=== PATIENT | male | born 1960 | race Caucasian/White ===

== ENCOUNTER 2023-10-16 14:56 | Emergency (ER) | payer MEDICARE ==
[~2023-10-16] VITALS: Ht 172.7 cm; Wt 82.1 kg
[2023-10-16] MEDS ORDERED: ASPIRIN 81MG CHEW TABLET PO ONE (15:15)
[2023-10-16] MEDS: METOPROLOL 5 MG/5 ML VIAL IV PRN ×3 (15:18→15:35)
[2023-10-16] MEDS ORDERED: METOPROLOL TART 25 MG TABLET PO ONE (15:30)
[2023-10-16] MEDS ORDERED: ISOVUE-370 76% 100ML VIAL As Ordered ONE (15:41)
[2023-10-16 15:52] LABS: BASO # 0.1 10^3/uL (0.0-0.2); BASO % 0.7 % (0.0-1.0); EOS # 0.2 10^3/uL (0.0-0.5); EOS % 1.6 % (0.0-3.0); HEMATOCRIT 44.1 % (42.0-52.0); HEMOGLOBIN 14.7 g/dl (13.5-17.5); LYMPH # 3.9 10^3/uL (1.5-5.0); LYMPH % 33.3 % (24.0-44.0); MEAN CORPUSCULAR HEMOGLOBIN 30.4 pg (27.0-33.0); MEAN CORPUSCULAR HGB CONC 33.3 g/dl (32.0-36.5); MEAN CORPUSCULAR VOLUME 91.1 fl (80.0-96.0); MONO # 0.8 10^3/uL (0.0-0.8); MONO % 7.1 % (2.0-8.0); NEUTROPHILS # 6.7 10^3/uL (1.5-8.5); PLATELET COUNT, AUTOMATED 288 10^3/uL (150-450); RED BLOOD COUNT 4.84 10^6/uL (4.30-6.10); WHITE BLOOD COUNT 11.7 10^3/uL (4.0-10.0)
[2023-10-16 16:10] LABS: LIPASE 125 U/L (12-53)
[2023-10-16 16:12] LABS: ALBUMIN 4.2 G/DL (3.2-5.2); ALKALINE PHOSPHATASE 92 U/L (46-116); ALT/SGPT 39 U/L (7.0-40); AST/SGOT 31 U/L (<34); BILIRUBIN,DIRECT 0.2 MG/DL (<0.4); BILIRUBIN,TOTAL 0.7 MG/DL (0.3-1.2); BLOOD UREA NITROGEN 15 MG/DL (9-23); CALCIUM LEVEL 9.6 MG/DL (8.3-10.6); CARBON DIOXIDE LEVEL 28 MMOL/L (20-31); CHLORIDE LEVEL 102 MMOL/L (98-107); CK-MB VALUE MASS 1.3 NG/ML (<3.6); CPK CREATINE PHOSPHOKINASE 80 U/L (46-171); CREATININE FOR GFR 0.77 MG/DL (0.70-1.30); GLOMERULAR FILTRATION RATE > 60.0 (>49); GLUCOSE, FASTING 146 MG/DL (74-106); MB/CK RELATIVE INDEX 1.62 (< OR =4); POTASSIUM SERUM 3.8 MMOL/L (3.5-5.1); SODIUM LEVEL 138 MMOL/L (136-145); TOTAL PROTEIN 7.3 G/DL (5.7-8.2)
[2023-10-16 16:14] LABS: FREE T4 1.32 NG/DL (0.89-1.76); THYROID STIMULATING HORMONE 2.023 uIU/ML (0.55-4.78)
[2023-10-16 16:17] VITALS: BP 132/77
[2023-10-16 16:45] LABS: INR 1.55
[2023-10-16 16:46] LABS: PARTIAL THROMBOPLASTIN TIME 40.3 SECONDS (24.8-34.2)
[2023-10-16 17:26] LABS: CK-MB VALUE MASS 1.5 NG/ML (<3.6)
[2023-10-16] MEDS ORDERED: GABA-282 PO (17:52)
[2023-10-16] MEDS ORDERED: ZOLO100T PO (17:52)
[2023-10-16] MEDS ORDERED: BUSP10TA PO (17:52)
[2023-10-16 19:10] VITALS: BP 138/77; TEMP 98.1
[2023-10-16 19:15] VITALS: O2SAT 96
[2023-10-16 19:15] LABS: CK-MB VALUE MASS 1.6 NG/ML (<3.6)
[2023-10-16 19:16] LABS: MB/CK RELATIVE INDEX 1.95 (< OR =4)
== END 2023-10-16 20:10 | disposition home or self-care (01) ==
LOC: M ED 14:56
DX: I48.0 Paroxysmal atrial fibrillation (principal); R00.1 Bradycardia, unspecified; I44.4 Left anterior fascicular block; E78.5 Hyperlipidemia, unspecified; F12.10 Cannabis abuse, uncomplicated; Z86.79 Personal history of other diseases of the circulatory system; Z79.01 Long term (current) use of anticoagulants; Z79.891 Long term (current) use of opiate analgesic; Z79.899 Other long term (current) drug therapy
CPT/HCPCS: 71045; 71275; 80047; 80048; 80076; 82550; 82553; 83690; 83880; 84439; 84443; 84484; 85025; 85610; 85730; 93005; 93041; 94760; 96374; 99285; Q9967

== ENCOUNTER 2024-02-15 21:23 | Emergency (ER) | payer MEDICAID, MEDICARE ==
[~2024-02-15] VITALS: Ht 170.2 cm; Wt 80.0 kg
[2024-02-15] MEDS: METOPROLOL 5 MG/5 ML VIAL IV SCH (02:40)
[~2024-02-15 21:23] MED LIST: BUSP10TA PO; GABA-282 PO; ZOLO100T PO
[2024-02-15 22:04] LABS: BASO % 0.2 % (0.0-1.0); HEMOGLOBIN 9.9 g/dl (13.5-17.5); LYMPH # 1.7 10^3/uL (1.5-5.0); LYMPH % 28.3 % (24.0-44.0); MEAN CORPUSCULAR VOLUME 78.7 fl (80.0-96.0); MONO # 0.3 10^3/uL (0.0-0.8); MONO % 4.6 % (2.0-8.0); NEUTROPHILS % 66.6 % (36.0-66.0); PLATELET COUNT, AUTOMATED 200 10^3/uL (150-450); RED BLOOD COUNT 3.81 10^6/uL (4.30-6.10)
[2024-02-15 22:15] LABS: INR 2.14; PROTHROMBIN TIME 23.2 SECONDS (12.5-14.5)
[2024-02-15 22:32] LABS: CK-MB VALUE MASS < 1.0 NG/ML (<3.6)
[2024-02-15 22:34] LABS: BLOOD UREA NITROGEN 25 MG/DL (9-23); CALCIUM LEVEL 7.8 MG/DL (8.3-10.6); CARBON DIOXIDE LEVEL 26 MMOL/L (20-31); CHLORIDE LEVEL 100 MMOL/L (98-107); CPK CREATINE PHOSPHOKINASE 30 U/L (46-171); CREATININE FOR GFR 1.19 MG/DL (0.70-1.30); GLOMERULAR FILTRATION RATE > 60.0 (>49); GLUCOSE, FASTING 113 MG/DL (74-106); MAGNESIUM LEVEL 1.8 MG/DL (1.8-2.4); MB/CK RELATIVE INDEX 3.33 (< OR =4); SODIUM LEVEL 131 MMOL/L (136-145)
[2024-02-15] MEDS: METOPROLOL TART 25 MG TABLET PO ONE (22:35)
[2024-02-15 22:36] LABS: THYROID STIMULATING HORMONE 1.079 uIU/ML (0.55-4.78)
[2024-02-15 22:59] LABS: FREE T4 1.06 NG/DL (0.89-1.76)
[2024-02-16] MEDS: PANTOPRAZOLE 40MG VIAL IV ONE ×2 (00:10→07:44)
[2024-02-16] MEDS ORDERED: ISOVUE-370 76% 100ML VIAL As Ordered ONE (00:23)
[2024-02-16 00:26] LABS: CK-MB VALUE MASS 1.8 NG/ML (<3.6); MB/CK RELATIVE INDEX 6.92 (< OR =4)
[2024-02-16 05:00] LABS: BASO % 0.2 % (0.0-1.0); HEMATOCRIT 27.7 % (42.0-52.0); HEMOGLOBIN 9.1 g/dl (13.5-17.5); LYMPH % 30.2 % (24.0-44.0); MEAN CORPUSCULAR HEMOGLOBIN 25.5 pg (27.0-33.0); MEAN CORPUSCULAR HGB CONC 32.9 g/dl (32.0-36.5); MEAN CORPUSCULAR VOLUME 77.6 fl (80.0-96.0); MONO # 0.4 10^3/uL (0.0-0.8); MONO % 5.5 % (2.0-8.0); NEUTROPHILS # 4.2 10^3/uL (1.5-8.5); NEUTROPHILS % 63.8 % (36.0-66.0); PLATELET COUNT, AUTOMATED 189 10^3/uL (150-450); RED BLOOD COUNT 3.57 10^6/uL (4.30-6.10); WHITE BLOOD COUNT 6.5 10^3/uL (4.0-10.0)
[2024-02-16] MEDS: NS 1,000 ML IV ONE (05:55)
[2024-02-16 06:40] VITALS: BP 112/65
[2024-02-16] MEDS: METOPROLOL TART 25 MG TABLET PO ONE (06:40)
[2024-02-16 08:00] VITALS: BP 141/83; TEMP 99.6; O2SAT 93
== END 2024-02-16 08:07 | disposition short-term general hospital (02) ==
LOC: EDBD 21:23 → M ED 21:23
DX: I21.4 Non-ST elevation (NSTEMI) myocardial infarction (principal); K92.2 Gastrointestinal hemorrhage, unspecified; D64.9 Anemia, unspecified; I48.91 Unspecified atrial fibrillation; F43.10 Post-traumatic stress disorder, unspecified; F41.9 Anxiety disorder, unspecified; F32.9 Major depressive disorder, single episode, unspecified; K76.0 Fatty (change of) liver, not elsewhere classified; R16.2 Hepatomegaly with splenomegaly, not elsewhere classified; K42.9 Umbilical hernia without obstruction or gangrene; Z79.899 Other long term (current) drug therapy
CPT/HCPCS: 71045; 74177; 80048; 81001; 82550; 82553; 83735; 84439; 84443; 84484; 85025; 85610; 86850; 86900; 86901; 93005; 93041; 94760; 96361; 96374; 96375; 96376; 99285; C9113; Q9967

== ENCOUNTER → 2024-04-04 | Outpatient (REF) | payer MEDICARE ==
[2024-04-04 13:13] LABS: APPEARANCE, URINE CLEAR (CLEAR); BACTERIA, URINE AUTO NEGATIVE (NEGATIVE); BILIRUBIN, URINE AUTO NEGATIVE (NEGATIVE); BLOOD, URINE BLOOD 2+ (NEGATIVE); COLOR, URINE YELLOW (YELLOW); GLUCOSE, URINE (UA) AUTO NEGATIVE (NEGATIVE); KETONE, URINE AUTO NEGATIVE (NEGATIVE); LEUKOCYTE ESTERASE, URINE AUTO NEGATIVE (NEGATIVE); NITRITE, URINE AUTO NEGATIVE (NEGATIVE); PROTEIN, URINE AUTO 2+ mg/dL (NEGATIVE); RBC, URINE AUTO 24 /HPF (0-3); SPECIFIC GRAVITY URINE AUTO 1.009 (1.002-1.035); SQUAMOUS EPITHELIAL CELL UR AU 0 /HPF (0-6); UROBILINOGEN, URINE AUTO 0.2 mg/dL (0.0-2.0); WBC, URINE AUTO 2 /HPF (0-3)
[2024-04-04 13:30] LABS: HEMATOCRIT 25.7 % (42.0-52.0); HEMOGLOBIN 8.3 g/dl (13.5-17.5); MEAN CORPUSCULAR HEMOGLOBIN 28.1 pg (27.0-33.0); MEAN CORPUSCULAR HGB CONC 32.3 g/dl (32.0-36.5); MEAN CORPUSCULAR VOLUME 87.1 fl (80.0-96.0); PLATELET COUNT, AUTOMATED 187 10^3/uL (150-450); RED BLOOD COUNT 2.95 10^6/uL (4.30-6.10); WHITE BLOOD COUNT 12.1 10^3/uL (4.0-10.0)
[2024-04-04 14:00] LABS: TOTAL PROTEIN,RANDOM URINE 51.4 MG/DL (0.0-14.0)
[2024-04-04 14:06] LABS: ALBUMIN 2.8 G/DL (3.2-5.2); BILIRUBIN,TOTAL 0.3 MG/DL (0.3-1.2); CALCIUM LEVEL 8.1 MG/DL (8.3-10.6); CREATININE FOR GFR 2.7 MG/DL (0.70-1.30); GLOMERULAR FILTRATION RATE 25.5 (>49); POTASSIUM SERUM 4.9 MMOL/L (3.5-5.1); TOTAL PROTEIN 5.7 G/DL (5.7-8.2)
== END ==
LOC: M LABDRWAD 12:45
DX: D64.9 Anemia, unspecified (principal)

== ENCOUNTER 2024-10-26 07:47 | Inpatient (IN) | payer MEDICARE ==
[~2024-10-26] VITALS: Ht 172.7 cm; Wt 74.4 kg
[2024-10-26] VITALS (13 sets, daily range): BP systolic 105–152; BP diastolic 56–79; TEMP 96.8–98.2; O2SAT 95–98
[~2024-10-26 07:47] MED LIST changes: +GABA-1172 PO; -GABA-282 PO
[2024-10-26] MEDS: NS 500 ML IV ONE (08:17)
[2024-10-26 08:24] LABS: BASO % 0.2 % (0.0-1.0); LYMPH # 0.9 10^3/uL (1.5-5.0); LYMPH % 14.3 % (24.0-44.0); MEAN CORPUSCULAR HGB CONC 31.5 g/dl (32.0-36.5); MEAN CORPUSCULAR VOLUME 82.5 fl (80.0-96.0); MONO # 0.3 10^3/uL (0.0-0.8); MONO % 4.4 % (2.0-8.0); NEUTROPHILS # 4.8 10^3/uL (1.5-8.5); NEUTROPHILS % 80.3 % (36.0-66.0); PLATELET COUNT, AUTOMATED 210 10^3/uL (150-450); RED BLOOD COUNT 2.23 10^6/uL (4.30-6.10)
[2024-10-26 08:28] LABS: HEMATOCRIT 18.4 % (42.0-52.0)
[2024-10-26 08:29] LABS: HEMOGLOBIN 5.8 g/dl (13.5-17.5)
[2024-10-26 08:40] LABS: INR 1.33; PROTHROMBIN TIME 16.8 SECONDS (12.5-14.5)
[2024-10-26 08:48] LABS: MB/CK RELATIVE INDEX 4.54 (< OR =4)
[2024-10-26 08:49] LABS: ALBUMIN 2.2 G/DL (3.2-5.2); BILIRUBIN,DIRECT 0.2 MG/DL (<0.4); BILIRUBIN,TOTAL 0.3 MG/DL (0.3-1.2); CALCIUM LEVEL 7.9 MG/DL (8.3-10.6); CREATININE FOR GFR 6.55 MG/DL (0.70-1.30); GLOMERULAR FILTRATION RATE 9.2 (>49); MAGNESIUM LEVEL 1.8 MG/DL (1.8-2.4); POTASSIUM SERUM 4.6 MMOL/L (3.5-5.1); TOTAL PROTEIN 7.1 G/DL (5.7-8.2)
[2024-10-26 08:50] LABS: THYROID STIMULATING HORMONE 1.406 uIU/ML (0.55-4.78)
[2024-10-26 08:51] LABS: FREE T4 1.04 NG/DL (0.89-1.76)
[2024-10-26] MEDS: METOPROLOL TART 25 MG TABLET PO ONE (09:00)
[2024-10-26] MEDS: MORPHINE 2 MG/ML 1ML VIAL IV PRN (09:01)
[2024-10-26 09:38] LABS: CK-MB VALUE MASS 1.5 NG/ML (<3.6)
[2024-10-26 09:40] LABS: MB/CK RELATIVE INDEX 6.52 (< OR =4)
[2024-10-26 11:32] LABS: CK-MB VALUE MASS 2.2 NG/ML (<3.6)
[2024-10-26 11:34] LABS: MB/CK RELATIVE INDEX 11.57 (< OR =4)
[2024-10-26] MEDS ORDERED: SERT-141 PO (11:53)
[2024-10-26] MEDS ORDERED: ELIQ5TAB PO (11:53)
[2024-10-26] MEDS ORDERED: GABA-1171 PO (11:53)
[2024-10-26] MEDS ORDERED: AMIO100T4 PO (11:53)
[2024-10-26] MEDS ORDERED: HOME MED LIST COMPLETE! XX SCH (11:55)
[2024-10-26 13:34] LABS: CREATININE,RANDOM URINE 73.5 MG/DL
[2024-10-26 13:39] LABS: URIC ACID 9.6 MG/DL (3.7-9.2)
[2024-10-26 14:23] LABS: PERCENT SATURATION 12.7 % (19.7-50.0)
[2024-10-26 14:24] LABS: TOTAL PROTEIN,RANDOM URINE 127.8 MG/DL (0.0-14.0)
[2024-10-26 14:26] LABS: FERRITIN 237.5 NG/ML (10.5-307.3)
[2024-10-26] MEDS: GABAPENTIN 100 MG CAP PO SCH (15:44)
[2024-10-26] MEDS: SERTRALINE HCL 50 MG TAB PO SCH (15:44)
[2024-10-26] MEDS: AMIODARONE 100MG TABLET (PACERONE) PO SCH (15:59)
[2024-10-26] MEDS: ALPRAZolam 0.25 MG TAB PO ONE (21:50)
[2024-10-26 23:23] LABS: BASO % 0.4 % (0.0-1.0); LYMPH # 1.3 10^3/uL (1.5-5.0); LYMPH % 26.1 % (24.0-44.0); MEAN CORPUSCULAR HEMOGLOBIN 26.8 pg (27.0-33.0); MEAN CORPUSCULAR HGB CONC 33.2 g/dl (32.0-36.5); MEAN CORPUSCULAR VOLUME 80.9 fl (80.0-96.0); MONO # 0.3 10^3/uL (0.0-0.8); MONO % 6.3 % (2.0-8.0); NEUTROPHILS # 3.2 10^3/uL (1.5-8.5); NEUTROPHILS % 66.8 % (36.0-66.0); PLATELET COUNT, AUTOMATED 176 10^3/uL (150-450); RED BLOOD COUNT 2.57 10^6/uL (4.30-6.10); WHITE BLOOD COUNT 4.8 10^3/uL (4.0-10.0)
[2024-10-26 23:25] LABS: HEMATOCRIT 20.8 % (42.0-52.0)
[2024-10-26 23:27] LABS: HEMOGLOBIN 6.9 g/dl (13.5-17.5)
[2024-10-26 23:44] LABS: CALCIUM LEVEL 7.3 MG/DL (8.3-10.6); CREATININE FOR GFR 6.11 MG/DL (0.70-1.30); GLOMERULAR FILTRATION RATE 9.9 (>49); POTASSIUM SERUM 4.7 MMOL/L (3.5-5.1)
[2024-10-27] VITALS (11 sets, daily range): BP systolic 112–140; BP diastolic 55–83; TEMP 97.1–99.7; O2SAT 92–97
[2024-10-27 06:02] LABS: HEMATOCRIT 24.3 % (42.0-52.0); HEMOGLOBIN 8.2 g/dl (13.5-17.5); MEAN CORPUSCULAR HEMOGLOBIN 27.3 pg (27.0-33.0); MEAN CORPUSCULAR HGB CONC 33.7 g/dl (32.0-36.5); PLATELET COUNT, AUTOMATED 178 10^3/uL (150-450); WHITE BLOOD COUNT 5.8 10^3/uL (4.0-10.0)
[2024-10-27 06:23] LABS: CALCIUM LEVEL 7.6 MG/DL (8.3-10.6); CREATININE FOR GFR 5.94 MG/DL (0.70-1.30); GLOMERULAR FILTRATION RATE 10.2 (>49); POTASSIUM SERUM 4.7 MMOL/L (3.5-5.1)
[2024-10-27] MEDS ORDERED: SERTRALINE 100 MG TAB PO SCH (09:00)
[2024-10-27] MEDS: ACETAMINOPHEN 325 MG TAB PO PRN (10:48)
[2024-10-27] MEDS: methylPREDNISolone 1,000 MG, VIAL MATE ADAPTER 1 EACH in NS 100 ML IV SCH (12:23)
[2024-10-27 12:27] LABS: ANTI-STREPTOLYSIN O QUANT 398.7 IU/ML (<195)
[2024-10-28 04:27] VITALS: BP 145/77; TEMP 97.1; O2SAT 99
[2024-10-28 06:27] LABS: BASO % 0.2 % (0.0-1.0); HEMOGLOBIN 8.2 g/dl (13.5-17.5); LYMPH # 0.9 10^3/uL (1.5-5.0); MEAN CORPUSCULAR HEMOGLOBIN 27.8 pg (27.0-33.0); MEAN CORPUSCULAR HGB CONC 34.2 g/dl (32.0-36.5); MEAN CORPUSCULAR VOLUME 81.4 fl (80.0-96.0); MONO # 0.1 10^3/uL (0.0-0.8); MONO % 2.7 % (2.0-8.0); NEUTROPHILS # 3.1 10^3/uL (1.5-8.5); NEUTROPHILS % 74.4 % (36.0-66.0); PLATELET COUNT, AUTOMATED 170 10^3/uL (150-450); RED BLOOD COUNT 2.95 10^6/uL (4.30-6.10); WHITE BLOOD COUNT 4.1 10^3/uL (4.0-10.0)
[2024-10-28 06:56] LABS: CALCIUM LEVEL 8.1 MG/DL (8.3-10.6); CREATININE FOR GFR 5.91 MG/DL (0.70-1.30); GLOMERULAR FILTRATION RATE 10.3 (>49); POTASSIUM SERUM 4.8 MMOL/L (3.5-5.1)
[2024-10-28 07:57] VITALS: BP 134/77; TEMP 97.6; O2SAT 99
[2024-10-28 12:13] VITALS: BP 122/70; TEMP 97.8; O2SAT 96
[2024-10-28 15:36] VITALS: BP 133/74; TEMP 98; O2SAT 97
[2024-10-28 19:12] VITALS: BP 155/81; TEMP 97.2; O2SAT 98
[2024-10-28 23:08] VITALS: BP 121/69; TEMP 97; O2SAT 98
[2024-10-29] VITALS (21 sets, daily range): BP systolic 108–168; BP diastolic 58–88; TEMP 96.7–101.9; O2SAT 89–100
[2024-10-29 06:02] LABS: HEMATOCRIT 22.2 % (42.0-52.0); HEMOGLOBIN 7.4 g/dl (13.5-17.5); LYMPH # 0.7 10^3/uL (1.5-5.0); LYMPH % 8.1 % (24.0-44.0); MEAN CORPUSCULAR HEMOGLOBIN 27.4 pg (27.0-33.0); MEAN CORPUSCULAR HGB CONC 33.3 g/dl (32.0-36.5); MEAN CORPUSCULAR VOLUME 82.2 fl (80.0-96.0); MONO # 0.2 10^3/uL (0.0-0.8); MONO % 2.5 % (2.0-8.0); NEUTROPHILS # 7.3 10^3/uL (1.5-8.5); NEUTROPHILS % 88.8 % (36.0-66.0); PLATELET COUNT, AUTOMATED 183 10^3/uL (150-450); WHITE BLOOD COUNT 8.2 10^3/uL (4.0-10.0)
[2024-10-29 06:19] LABS: CALCIUM LEVEL 7.8 MG/DL (8.3-10.6); CREATININE FOR GFR 5.73 MG/DL (0.70-1.30); GLOMERULAR FILTRATION RATE 10.7 (>49); POTASSIUM SERUM 4.8 MMOL/L (3.5-5.1)
[2024-10-29 11:17] LABS: CK-MB VALUE MASS 2.5 NG/ML (<3.6)
[2024-10-29 11:19] LABS: MB/CK RELATIVE INDEX 13.88 (< OR =4)
[2024-10-29] MEDS ORDERED: MORPHINE 2 MG/ML 1ML VIAL As Ordered ONE (11:24)
[2024-10-29] MEDS ORDERED: NITROGLYCERIN 0.4MG SUBL TABLET As Ordered ONE (11:33)
[2024-10-29] MEDS ORDERED: ASPIRIN 81MG CHEW TABLET As Ordered ONE (11:37)
[2024-10-29] MEDS: PANTOPRAZOLE 40MG VIAL IV SCH (11:40)
[2024-10-29] MEDS: NITROGLYCERIN 0.4MG SUBL TABLET SL PRN (11:40)
[2024-10-29] MEDS: MORPHINE 2 MG/ML 1ML VIAL IV ONE (11:41)
[2024-10-29] MEDS: ASPIRIN 81MG ENTERIC TABLET PO SCH (11:41)
[2024-10-29 12:34] LABS: CK-MB VALUE MASS 3.8 NG/ML (<3.6)
[2024-10-29 12:38] LABS: MB/CK RELATIVE INDEX 14.61 (< OR =4)
[2024-10-29] MEDS ORDERED: METOPROLOL SUCC *XL* 25MG TAB (TopROL *XL*) PO ONE (13:00)
[2024-10-29 14:33] LABS: CK-MB VALUE MASS 9.7 NG/ML (<3.6)
[2024-10-29 14:40] LABS: MB/CK RELATIVE INDEX 15.39 (< OR =4)
[2024-10-29] MEDS ORDERED: HEPARIN SOD (PORCINE) 5000UNITS/ML 1ML VIAL/SYRINGE IV PRN (14:45)
[2024-10-29] MEDS ORDERED: HEPARIN SOD (PORCINE) 5000UNITS/ML 1ML VIAL/SYRINGE IV ONE (14:45)
[2024-10-29] MEDS ORDERED: HEPARIN DRIP 25,000 UNITS in IV 1 EA IV SCH (14:45)
[2024-10-29 15:14] LABS: HEMATOCRIT 26.1 % (42.0-52.0); HEMOGLOBIN 8.7 g/dl (13.5-17.5); MEAN CORPUSCULAR HEMOGLOBIN 27.6 pg (27.0-33.0); MEAN CORPUSCULAR HGB CONC 33.3 g/dl (32.0-36.5); MEAN CORPUSCULAR VOLUME 82.9 fl (80.0-96.0); PLATELET COUNT, AUTOMATED 146 10^3/uL (150-450); RED BLOOD COUNT 3.15 10^6/uL (4.30-6.10)
[2024-10-29 15:29] LABS: INR 1.51; PROTHROMBIN TIME 18.5 SECONDS (12.5-14.5)
[2024-10-29] MEDS ORDERED: PIPERACILLIN/TAZOBACTAM SOD 3.375 GM in DEXTROSE 5% (D5W) ADV/MINI-BAG 50 ML IV SCH (15:30)
[2024-10-29] MEDS ORDERED: VANCOMYCIN HCL 750 MG, VIAL MATE ADAPTER 1 EACH in NS 250 ML IV SCH (15:30)
[2024-10-29 15:32] LABS: HEMOGLOBIN A1c 5.5 % (4.0-6.0)
[2024-10-29 15:52] LABS: ALBUMIN 2.3 G/DL (3.2-5.2); BILIRUBIN,TOTAL 0.6 MG/DL (0.3-1.2); CALCIUM LEVEL 8.1 MG/DL (8.3-10.6); CHOLESTEROL RISK RATIO 5.86 (<5); CREATININE FOR GFR 5.79 MG/DL (0.70-1.30); GLOMERULAR FILTRATION RATE 10.6 (>49); HDL CHOLESTEROL 25.4 MG/DL (>40); NON-HDL-C 123.6 MG/DL; TOTAL PROTEIN 7.3 G/DL (5.7-8.2)
[2024-10-29] MEDS ORDERED: PIPERACILLIN/TAZOBACTAM SOD 4.5 GM in DEXTROSE 5% (D5W) ADV/MINI-BAG 50 ML IV SCH (16:00)
[2024-10-29 16:10] LABS: C REACTIVE PROTEIN QUANTITATIV 3.8 MG/DL (<1.0)
[2024-10-29] MEDS ORDERED: ACETAMINOPHEN *IV* 1,000 MG in IV 1 EA IV ONE (16:15)
[2024-10-29] MEDS: DESMOPRESSIN ACETATE 30 MCG in NS 50 ML IV ONE (16:30)
[2024-10-29] MEDS ORDERED: MIDAZOLAM 5MG/ML 1ML VIAL IV PRN (16:35)
[2024-10-29] MEDS: ETOMIDATE INJ 20MG/10ML VIAL IV STA (16:37)
[2024-10-29] MEDS: SUCCINYLCHOLINE INJ 200MG/10ML VIAL IV STA (16:38)
[2024-10-29] MEDS ORDERED: VANCOMYCIN INTERMITTENT/PULSE DOSING BY CLINICAL PHARMACIST PER DOSING PROTOCOL XX SCH (17:00)
[2024-10-29] MEDS ORDERED: VANCOMYCIN HCL 1,500 MG, VIAL MATE ADAPTER 1 EACH in NS 500 ML IV ONE (17:00)
[2024-10-29] MEDS ORDERED: PROPOFOL 1,000 MG/100 ML VIAL As Ordered ONE (17:10)
[2024-10-29] MEDS ORDERED: propofoL 1,000 MG in IV 1 EA IV STA (17:15)
[2024-10-29 17:42] LABS: COMPLEMENT TOTAL (CH50) 50 U/mL (31-60)
[2024-10-29] MEDS ORDERED: METOPROLOL TART 12.5 MG PER 1/2 TAB PO SCH (21:00)
[2024-10-29] MEDS ORDERED: APIXABAN 5 MG TAB (ELIQUIS) PO SCH (21:00)
[2024-10-29] MEDS ORDERED: METOPROLOL SUCC *XL* 25MG TAB (TopROL *XL*) PO SCH (21:00)
[2024-10-30] MEDS ORDERED: ATORVASTATIN 20 MG TAB PO SCH (09:00)
[2024-10-30] MEDS ORDERED: predniSONE 20 MG TAB PO SCH (09:00)
[2024-10-30 14:58] LABS: ANA SCREEN, IFA NEGATIVE (NEGATIVE)
[2024-10-31 00:10] LABS: ANCA SCREEN C-ANCA POS (Negative)
== END 2024-10-29 17:28 | disposition short-term general hospital (02) | DRG 682 ==
LOC: M ED 07:47 → EDBD 07:47 → M ED INP 13:27 → M PCU 15:05 → M MS4PR 10-29 08:22 → M PCU 10-29 12:23 → M ICU 10-29 15:52
PROVIDERS: ADMIT Internal Medicine; ATTEND Internal Medicine
PROC: 30233N1 Transfusion of Nonautologous Red Blood Cells into Peripheral Vein, Percutaneous Approach (ICD-10-PCS; principal; 2024-10-26)
PROC: B246ZZZ Ultrasonography of Right and Left Heart (ICD-10-PCS; 2024-10-27)
PROC: 5A1935Z Respiratory Ventilation, Less than 24 Consecutive Hours (ICD-10-PCS; 2024-10-27)
PROC: 0BH17EZ Insertion of Endotracheal Airway into Trachea, Via Natural or Artificial Opening (ICD-10-PCS; 2024-10-27)
DX: N17.9 Acute kidney failure, unspecified (principal); I60.9 Nontraumatic subarachnoid hemorrhage, unspecified; I61.9 Nontraumatic intracerebral hemorrhage, unspecified; I21.4 Non-ST elevation (NSTEMI) myocardial infarction; I50.22 Chronic systolic (congestive) heart failure; E87.1 Hypo-osmolality and hyponatremia; G93.40 Encephalopathy, unspecified; D62 Acute posthemorrhagic anemia; I48.0 Paroxysmal atrial fibrillation; Z95.2 Presence of prosthetic heart valve; F39 Unspecified mood [affective] disorder; N18.4 Chronic kidney disease, stage 4 (severe); D50.9 Iron deficiency anemia, unspecified; N05.7 Unspecified nephritic syndrome with diffuse crescentic glomerulonephritis; I44.7 Left bundle-branch block, unspecified; E78.5 Hyperlipidemia, unspecified; I27.20 Pulmonary hypertension, unspecified; Z79.01 Long term (current) use of anticoagulants; Z79.899 Other long term (current) drug therapy